=== PATIENT | male | born 1985 | race Hispanic/Latino ===

== ENCOUNTER 2022-11-18 20:52 | Emergency (ER) | payer BC, SELFPAY ==
[2022-11-18] MEDS ORDERED: Tetracaine 0.5% PF 4 ML BOT ONE (21:09)
[2022-11-18] MEDS ORDERED: Fluorescein Opthalmic Strip ONE (21:09)
== END 2022-11-18 21:39 | disposition home or self-care (01) ==
LOC: NAV ERS 20:52
DX: H10.12 Acute atopic conjunctivitis, left eye (principal); I10 Essential (primary) hypertension; Z79.899 Other long term (current) drug therapy
CPT/HCPCS: 99282